=== PATIENT | female | born 1985 | race Caucasian/White ===

== ENCOUNTER 2016-08-15 02:04 | Inpatient (IN) | payer OTHER ==
[2016-08-15] MEDS ORDERED: OXYTOCIN/RINGERS LACTATE 1,000 ML IV PRN (02:34)
[2016-08-15] MEDS ORDERED: LR 1,000 ML IV PRN (02:34)
[2016-08-15] MEDS ORDERED: TERBUTALINE SULFATE 1 MG/ML VIAL IV PRN (02:34)
[2016-08-15] MEDS ORDERED: LIDOCAINE 1% 30 ML SDV ONE (03:00)
[2016-08-15] MEDS ORDERED: MISOPROSTOL 200 MCG TAB ONE (03:01)
[2016-08-15] MEDS ORDERED: TERBUTALINE SULFATE 1 MG/ML VIAL ONE (03:01)
[2016-08-15] MEDS ORDERED: AMMONIA AROMATIC 1 EACH AMP IH ONE (03:01)
[2016-08-15] MEDS ORDERED: OXYTOCIN 10 UNIT/ML VIAL ONE (03:01)
[2016-08-15 03:19] LABS: % IMMATURE GRANULYOCYTES 0.7 % (0.0-1.1); ABSOLUTE IMMATURE GRANULOCYTES 0.07 10^3/uL (0.00-0.10); ADD DIFF? NO; ADD MORPH? NO; ADD SCAN? NO; ATYPICAL LYMPHOCYTE FLAG 10 (0-99); FRAGMENT RBC FLAG 0 (0-99); HEMATOCRIT 34.5 % (38.0-47.0); HEMOGLOBIN 12.1 g/dL (12.6-16.3); LEFT SHIFT FLG 0 (0-99); LIPEMIA HEMOLYSIS FLAG 90 (0-99); MEAN CELL HEMOGLOBIN 31.1 pg (27.9-34.1); MEAN CELL HEMOGLOBIN CONCENTR. 35.1 g/dL (32.4-36.7); MEAN CELL VOLUME 88.7 fL (81.5-99.8); PLATELET CLUMPS FLAG 50 (0-99); PLATELET COUNT 239 10^3/uL (150-400); RED BLOOD CELL COUNT 3.89 10^6/uL (4.18-5.33); RED CELL DISTRIBUTION WIDTH 13.1 % (11.5-15.2)
[2016-08-15] MEDS ORDERED: OXYTOCIN/LR *STANDARD DOSE PROTOCOL IV SCH (08:30)
--- NOTE | 2016-08-15 10:27 | GHP ---
DATE OF ADMISSION: 08/15/2016 CHIEF COMPLAINT: Labor and rupture of fluid membranes. HISTORY OF PRESENT ILLNESS: The patient is a 31-year-old G2, P0-0-1-0, female who is at 39-1/7 weeks' gestation by last menstrual period and first trimester ultrasound who presents with complaints of rupture membranes about 1 in the morning. It was clear fluid. She has been having contractions as well. Her contractions were intermittent. She presented to Labor and Delivery around 3 P.M. and cervical exam was difficult to perform secondary to the posterior nature of the cervix. The patient contracted on and off and then her contractions petered out and began Pitocin for augmentation. PAST MEDICAL HISTORY: Negative. PAST SURGICAL HISTORY: Negative. She has had 1 previous ectopic treated with methotrexate. FAMILY HISTORY: Her father has muscular dystrophy. The patient is not a carrier for muscular dystrophy. ALLERGIES: She has no known drug allergies. MEDICATIONS: She is taking folic acid, calcium, , plus DHA. REVIEW OF SYSTEMS: Positive for loss of fluid and painful contractions PHYSICAL EXAMINATION: VITAL SIGNS: Blood pressure is 125/83, pulse is 71, respiratory rate is 16, temperature is 36.3. GENERAL: She is uncomfortable with contractions. ABDOMEN: Gravid. Cervical exam was 4/90/0 station. heart tones in the 130s with moderate variability and positive accelerations. She is roxi every 2-3 minutes. LABORATORY DATA: Significant for B positive, rubella immune, RPR nonreactive, hepatitis B surface antigen negative, HIV negative, gonorrhea and chlamydia negative, GBS negative. 1-hour Glucola was 127 and genetic screening was negative. ASSESSMENT AND PLAN: This is a 31-year-old G2, P0-0-1-0, female who is at 39-1/ 7 weeks' gestation in early active labor. well being is reassuring. GBS is negative. We will continue to plan on augmentation with Pitocin and place epidural for patient pain comfort. /[id number]/MODL MTDD
[2016-08-15] MEDS ORDERED: LIDO/EPI 2% **for epidural** 20 ML SDV ONE (10:30)
[2016-08-15] MEDS ORDERED: fentaNYL 2MCG/ML/BUP 0.1% RTU 100 ML BAG EP ONE (10:31)
[2016-08-15] MEDS ORDERED: PHENYLEPHRINE HCL 100 MCG/ML SYR ONE (10:31)
[2016-08-15] MEDS ORDERED: PHENYLEPHRINE HCL 100 MCG/ML SYR IVP PRN (11:09)
[2016-08-15] MEDS ORDERED: ONDANSETRON 4 MG/2 ML VIAL IVP PRN (11:09)
[2016-08-15] MEDS ORDERED: NALOXONE HCL 0.4 MG/ML INJ IVP PRN (11:09)
[2016-08-15] MEDS ORDERED: ONDANSETRON 4 MG/2 ML VIAL ONE (11:29)
[2016-08-15] MEDS ORDERED: fentaNYL 2MCG/ML/BUP 0.1% RTU 100 ML EP SCH (11:30)
[2016-08-15] MEDS ORDERED: LR 500 ML IV SCH (11:30)
--- NOTE | 2016-08-15 12:42 | SOAPPROG ---
SOAP Progress Note Assessment/Plan: Assessment: 31 yo @ 39 1/7, active labor, comfortable with epidural. Plan: 08/15/16 12:38 FWB reassuring. GBS neg. IUPC placed, increase pitocin as needed. Expect . Subjective: 31 yo @ 39 1/7, active labor, comfortable with epidural. Objective: Laboratory Results 08/15/16 02:50 VSS Physical Exam - Physical Exam Pelvic Exam: other (sve 4/c/0) ICD10 Worksheet Patient Problems: Problems Problem Status Onset Labor established Acute
--- NOTE | 2016-08-15 15:56 | OBPROG ---
OBG Progress Note Assessment/Plan: Assessment: 31 yo @ 39 1/7, active labor, comfortable with epidural. Plan: FWB reassuring. GBS neg. MVUs less than 200, but is progressing in labor. Expect . 08/15/16 15:55 Subjective: 31 yo @ 39 1/7, active labor, comfortable with epidural-feeling pelvic pressure. Objective: 08/15/16 02:50 Patient ABO/Rh B POSITIVE 08/15/16 02:50 - SVE Dilation (cm): 7 Effacement (%): 100 Station: 0 Current Contraction Pattern: Regular FHR (bpm): 130 FHR Pattern Variability: Moderate FHR Category: 2 Membranes: SROM Amniotic Fluid Color: Clear ICD10 Worksheet Patient Problems: Problems Problem Status Onset Labor established Acute
--- NOTE | 2016-08-15 18:11 | OBPROG ---
OBG Progress Note Assessment/Plan: Assessment: 31 yo @ 39 1/7, active labor, comfortable with epidural, feels pressure. Plan: FWB reassuring. GBS neg. Completely dilated, discussed normal length of second stage of labor, will begin pushing. Expect . 08/15/16 15:55 08/15/16 18:10 Subjective: 31 yo female, 39 1/7, in active labor, feels pressure. Objective: 08/15/16 02:50 Patient ABO/Rh B POSITIVE 08/15/16 02:50 123/60 - SVE Dilation (cm): 10 Effacement (%): 100 Station: +1 Current Contraction Pattern: Regular FHR (bpm): 130 FHR Pattern Variability: Moderate FHR Category: 2 Membranes: SROM Amniotic Fluid Color: Clear ICD10 Worksheet Patient Problems: Problems Problem Status Onset Labor established Acute
[2016-08-15] MEDS ORDERED: METHYLERGONOVINE MAL 0.2 MG/ML INJ ONE (20:39)
[2016-08-15] MEDS ORDERED: HYDROCODONE/APAP 5/325 TAB PO PRN (20:52)
[2016-08-15] MEDS ORDERED: SIMETHICONE 80 MG TAB CHEW PO PRN (20:52)
--- NOTE | 2016-08-15 20:54 | OBPROC ---
- Labor and Delivery Onset of Contractions Date: 08/15/16 Onset of Contractions Time: 01:00 Onset of Contractions Type: Augmented Rupture of Membranes Date: 08/15/16 Rupture of Membranes Time: 01:00 Rupture of Membranes Type: Spontaneous Amniotic Fluid Color: Clear Dilation Complete Time: 18:00 Delivery Type: Spontaneous Placenta Delivery Date: 08/15/16 Episiotomy/Laceration: 2nd Degree Repair: 3-0, Vicryl EBL: 300 ml Complications: None - Medications Labor Augmentation/Induction Meds Used: Pitocin Labor Augmentation/Induction Indication: Other (Specify) (augmentation) Anesthesia: Epidural - Info Infant A Delivery Date: 08/15/16 Delivery Time: 20:21 Sex of : Female Score (1 Min): 8 Score (5 Min): 9
[2016-08-15] MEDS: IBUPROFEN 600 MG TAB PO PRN (21:01)
[2016-08-16] MEDS: DOCUSATE SODIUM 100 MG CAP PO PRN ×2 (08:42→21:37)
[2016-08-16] MEDS: IBUPROFEN 600 MG TAB PO PRN ×3 (08:43→21:40)
[2016-08-16] MEDS: IRON POLYSAC/IRON HEME 28 MG TAB PO SCH ×2 (08:43→21:37)
[2016-08-17] MEDS: IBUPROFEN 600 MG TAB PO PRN (04:13)
--- NOTE | 2016-08-17 08:03 | OBGCSDC ---
General Delivery Information - General Info : 2 Para: 1 Delivery Date: 08/15/16 Delivery Time: 20:21 Delivery Physician/CNM: Racheal Villarreal Admission Date: 08/15/16 Labs: Patient ABO/Rh B POSITIVE 08/15/16 02:50 Hct 29.2 % (38.0-47.0) L 08/16/16 05:15 - Info Infant A Sex of Infant: Female Score (1 Min): 8 Score (5 Min): 9 Vaginal - Diagnosis IUP (Weeks): 39 1/7 Labor: Augmented Rupture of Membranes Type: Spontaneous Amniotic Fluid Color: Clear Laceration: 2nd Degree Repair: 3-0, Vicryl Complications: None - Operations/Procedures Delivery Type: Spontaneous Anesthesia: Epidural - Delivery EBL: 300 ml Anesthesia: Epidural Discharge Information - Discharge Information Discharge Medications: Ibuprofen, Vitamins Condition: Good Instruction/Follow Up: Six Weeks Discharge Physician/CNM: Kathryn Mello Discharge Date: 08/17/16 Dictated: No
[2016-08-17] MEDS: IRON POLYSAC/IRON HEME 28 MG TAB PO SCH (08:16)
[2016-08-17] MEDS: DOCUSATE SODIUM 100 MG CAP PO PRN (08:16)
[2016-08-17 08:28] VITALS: BP 129/84; PULSE 67; RESP 16; TEMP 97.9; O2SAT 96
== END 2016-08-17 14:00 | disposition home or self-care (01) | DRG 775 ==
LOC: FLD 02:04 → FOB 23:27
PROVIDERS: ADMIT Obstetrics & Gynecology; ATTEND Obstetrics & Gynecology
PROC: 10E0XZZ Delivery of Products of Conception, External Approach (ICD-10-PCS; principal; 2016-08-15)
PROC: 0KQM0ZZ Repair Perineum Muscle, Open Approach (ICD-10-PCS; principal; 2016-08-15)
DX: O70.1 Second degree perineal laceration during delivery (principal); Z37.0 Single live birth; Z3A.39 39 weeks gestation of pregnancy
CPT/HCPCS: J2210; J2370; J2405; J2590; J3105

== ENCOUNTER → 2018-03-09 | Outpatient (CLI) | payer OTHER | LOC: FIMAGING 15:00 | PROVIDERS: ATTEND Obstetrics & Gynecology | DX: Z34.81 Encounter for supervision of other normal pregnancy, first trimester (principal); Z3A.12 12 weeks gestation of pregnancy ==

== ENCOUNTER → 2018-04-25 | Outpatient (CLI) | payer OTHER | LOC: FIMAGING 09:44 | PROVIDERS: ATTEND Obstetrics & Gynecology | DX: Z34.92 Encounter for supervision of normal pregnancy, unspecified, second trimester (principal); Z3A.19 19 weeks gestation of pregnancy ==

== ENCOUNTER → 2018-05-23 | Outpatient (CLI) | payer OTHER | LOC: FIMAGING 09:20 | PROVIDERS: ATTEND Obstetrics & Gynecology | DX: Z34.92 Encounter for supervision of normal pregnancy, unspecified, second trimester (principal); Z3A.23 23 weeks gestation of pregnancy ==